=== PATIENT | male | born 1950 | race Caucasian/White ===

== ENCOUNTER 2022-09-20 09:29 | Emergency (ER) | payer MEDICARE ==
[2022-09-20] MEDS ORDERED: Boostrix 0.5 ML (Tdap) VIAL (>/=7 yrs of age) ONE (10:00)
== END 2022-09-20 10:32 | disposition home or self-care (01) ==
LOC: MADERS 09:29
DX: S99.921A Unspecified injury of right foot, initial encounter (principal); I10 Essential (primary) hypertension; W23.0XXA Caught, crushed, jammed, or pinched between moving objects, initial encounter; Z79.899 Other long term (current) drug therapy
CPT/HCPCS: 90471; 90715

== ENCOUNTER 2023-09-29 13:20 | Inpatient (IN) | payer OTHER ==
[2023-09-29 14:46] VITALS: BMI 36.2
[2023-09-29] MEDS ORDERED: Meclizine HCl 25 MG TAB PO PRN (16:08)
[2023-09-29] MEDS ORDERED: Ondansetron ODT 4 MG TAB PO PRN (19:58)
[2023-09-29] MEDS ORDERED: Polyethylene Glycol 3350 17 GM Packet PO PRN (19:58)
[2023-09-29] MEDS ORDERED: Acetaminophen 325 MG TAB PO PRN (19:59)
[2023-09-29] MEDS: carBAMazepine XR 200 mg ER.Tablet PO SCH (20:50)
[2023-09-29] MEDS: Amlodipine 5 MG TAB PO SCH (20:51)
[2023-09-29] MEDS: Lisinopril 20 MG TAB PO SCH (20:51)
[2023-09-29] MEDS: Topiramate 25 MG TAB PO SCH (20:52)
[2023-09-29] MEDS: Atorvastatin Calcium 10 MG TAB PO SCH (20:52)
[2023-09-29] MEDS ORDERED: CHLORTHALIDONE 25MG PO SCH (21:00)
[2023-09-29] MEDS ORDERED: Chlorthalidone 25 MG TAB PO SCH (21:00)
[2023-09-29] MEDS ORDERED: SUMATRIPTAN 50 MG TAB PO PRN (21:12)
[2023-09-29] MEDS ORDERED: Ibuprofen 800 MG TAB PO PRN (21:18)
[2023-09-30 07:25] VITALS: BP 127/74; TEMP 97.7
[2023-09-30] MEDS: FLU VACC QS2023(65UP)/MF59C/PF 60 MCG/0.5 ML SYRINGE IM ONE (08:37)
[2023-09-30] MEDS: Aspirin 81 mg Enteric Coated Tablet PO SCH (08:37)
[2023-09-30] MEDS: Enoxaparin 40 MG (0.4 mL) SYRINGE SC SCH (08:37)
[2023-09-30] MEDS ORDERED: CHLORTHALIDONE 25MG PO SCH (21:00)
== END 2023-09-30 10:45 | disposition home or self-care (01) | DRG 948 ==
LOC: MADMS 13:20
PROVIDERS: ADMIT Family Medicine; ATTEND Family Medicine
DX: R53.81 Other malaise (principal); I10 Essential (primary) hypertension; E78.5 Hyperlipidemia, unspecified; G40.909 Epilepsy, unspecified, not intractable, without status epilepticus; Z79.899 Other long term (current) drug therapy; Z79.82 Long term (current) use of aspirin; Z91.81 History of falling

== ENCOUNTER 2025-03-01 18:20 | Inpatient (IN) | payer OTHER ==
[2025-03-01 18:51] VITALS: BMI 37.5
[2025-03-01] MEDS: carBAMazepine 200 MG TAB PO SCH (21:48)
[2025-03-01] MEDS: Senokot S 8.6-50 MG TAB PO SCH (21:49)
[2025-03-01] MEDS: Lisinopril 20 MG TAB PO SCH (21:51)
[2025-03-01] MEDS: carBAMazepine XR 200 mg ER.Tablet PO SCH (21:55)
[2025-03-02] MEDS: Acetaminophen/Codeine 30-300mg Tablet PO PRN (01:07)
[2025-03-02] MEDS: Methocarbamol 500 MG TAB PO PRN (01:07)
[2025-03-02 07:30] LABS: Anion Gap 17 mmol/L (10-20); BUN (Urea Nitrogen) 15 mg/dL (8.4-25.7); Calc. Creatinine Clearance 162 mL/min (70-130); Calcium 8.3 mg/dL (7.8-10.44); Carbon Dioxide 21 mmol/L (23-31); Chloride 107 mmol/L (98-107); Glucose 103 mg/dL (83-110); Potassium 4.3 mmol/L (3.5-5.1); Sodium 141 mmol/L (136-145)
[2025-03-02 07:39] LABS: Hematocrit 33.1 % (42.0-52.0); Hemoglobin 11.6 g/dL (14.0-18.0); Mean Corpuscular Hemoglobin 34.0 pg (27.0-31.0); Mean Corpuscular Volume 97.5 fl (78.0-98.0); Platelet Count 199 10x3/uL (130-400); Red Blood Cell (RBC) Count 3.40 mill/uL (4.70-6.10); White Blood Cell (WBC) Count 6.0 10x3/uL (4.8-10.8)
[2025-03-02 08:38] VITALS: BMI 37.5
[2025-03-02] MEDS: Metoprolol Succinate XL 50 MG ER.TAB PO SCH (09:02)
[2025-03-02] MEDS: carBAMazepine XR 200 mg ER.Tablet PO SCH (14:32)
[2025-03-03] MEDS: HYDROcodone/Acetaminophen 7.5/325 mg Tablet PO PRN (00:24)
[2025-03-04] MEDS: Acetaminophen 325 MG TAB PO PRN (11:35)
[2025-03-06] MEDS: Triple Antibiotic Oint 1 GM Packet TOP SCH (08:40)
[2025-03-06 18:36] VITALS: TEMP 98.4
[2025-03-07 07:03] VITALS: BP 115/58
== END 2025-03-07 11:25 | disposition home or self-care (01) | DRG 945 ==
LOC: MADMS 18:20
PROVIDERS: ADMIT Family Medicine; ATTEND Family Medicine
PROC: F07Z9ZZ Gait Training/Functional Ambulation Treatment (ICD-10-PCS; principal; 2025-03-01)
DX: R53.81 Other malaise (principal); S37.039A Laceration of unspecified kidney, unspecified degree, initial encounter; E66.9 Obesity, unspecified; I10 Essential (primary) hypertension; R26.89 Other abnormalities of gait and mobility; G40.909 Epilepsy, unspecified, not intractable, without status epilepticus; E78.5 Hyperlipidemia, unspecified; Z87.81 Personal history of (healed) traumatic fracture; Z98.890 Other specified postprocedural states; V89.2XXA Person injured in unspecified motor-vehicle accident, traffic, initial encounter; Z79.01 Long term (current) use of anticoagulants; Z79.899 Other long term (current) drug therapy
CPT/HCPCS: 36415; 80048; 85027